=== PATIENT | male | born 1945 | race Caucasian/White ===

== ENCOUNTER 2018-04-21 15:21 | Inpatient (IN) | END 2018-04-27 18:25 | disposition home health service (06) | DRG 682 ==

== ENCOUNTER 2019-04-24 13:14 | Inpatient (IN) | payer MEDICARE, MEDICAID ==
[~2019-04-24] VITALS: Ht 167.6 cm; Wt 77.3 kg
[~2019-04-24 13:14] MED LIST: ACET1TAB40 PO; ALLO100T PO; ALPR1TAB2 PO; AMIO100T4 PO; AMIO200T4 PO; AMLO-145 PO; ASC500 PO; BALS60OI TOP; BISA5TAB6 PO; CALC-662 PO; CYAN500T21 PO; DOCU-144 PO; DULO30CA45 PO; ERGO500014 PO; FAMO20TA18 PO; FERR325C PO; FOLI-49 PO; FURO20TA3 PO; GABA100C14 PO; IRON1TAB77 PO; MAGN400T28 PO; METO-335 PO; MULT-876 PO; MV-M1TAB2 PO; NORT50CA PO; OMEG-135 PO; OXYC-279 PO; PANT40TA4 PO; SENN-120 PO; SIMV20TA2 PO; TEST1.25 TD; VITA200C45 PO; WARF2.5T PO; WARF5TAB PO; ZINC220C5 PO
[2019-04-24 13:24] VITALS: Ht 167.6 cm; Wt 77.3 kg
[2019-04-24] MEDS ORDERED: morphine 2 MG INJ IV STA ×2 (14:02→15:39)
[2019-04-24] MEDS ORDERED: ONDANSETRON 4 MG INJ IV STA (14:02)
[2019-04-24] MEDS ORDERED: PIPER-TAZO 3.375 GM IV (PMX) 100 ML IVPB STA (14:55)
[2019-04-24] MEDS ORDERED: VANCOMYCIN 1 GM (PMX) 250 ML IVPB STA (14:55)
[2019-04-24] MEDS ORDERED: SODIUM CHLORIDE 0.9% 1L BAG IV* STA (14:55)
[2019-04-24] MEDS ORDERED: DOCUSATE SODIUM 100 MG CAP PO PRN (19:00)
[2019-04-24] MEDS ORDERED: hydrALAzine 20 MG INJ IV PRN (19:00)
[2019-04-24] MEDS ORDERED: NACL 0.9% 3 ML SYG IV SCH (19:00)
[2019-04-24] MEDS ORDERED: NITROGLYCERIN (SL) 0.4 MG TAB SL PRN (19:00)
[2019-04-24] MEDS ORDERED: ACETAMINOPHEN 325 MG TAB PO PRN ×2 (19:00)
[2019-04-24] MEDS ORDERED: ALBUTEROL/IPRATROPIUM (NEB) 3 ML AMP HHN PRN (19:00)
[2019-04-24] MEDS ORDERED: VANCOMYCIN IV PER PHARMACY XX SCH (19:00)
[2019-04-24] MEDS ORDERED: ONDANSETRON 4 MG INJ IV PRN ×2 (19:00)
[2019-04-24] MEDS ORDERED: LORAZEPAM 2 MG INJ IV PRN (19:00)
[2019-04-24] MEDS ORDERED: MAGNESIUM HYDROXIDE 30ML CUP PO PRN (19:00)
[2019-04-24 22:45] VITALS: BP 183/94; PULSE 68; RESP 18
[2019-04-24] MEDS: SOD CHLORIDE 0.45% 1,000 ML IV SCH (22:50)
[2019-04-24] MEDS: morphine 2 MG INJ IV PRN (22:58)
[2019-04-25] MEDS ORDERED: PENDING SANTYL ORDER FOR WOUND CARE XX PRN (00:30)
[2019-04-25] MEDS: PIPER-TAZO 3.375 GM IV (PMX) 100 ML IVPB SCH ×4 (00:43→17:27)
[2019-04-25 02:20] VITALS: BP 140/71; PULSE 68; RESP 16
[2019-04-25] MEDS: morphine 2 MG INJ IV PRN ×5 (04:24→20:31)
[2019-04-25 08:08] VITALS: BP 114/67; PULSE 60; RESP 20
[2019-04-25] MEDS: MAGNESIUM OXIDE 400 MG TAB PO SCH (08:38)
[2019-04-25] MEDS: ZINC SULFATE 220 MG CAP PO SCH (08:38)
[2019-04-25] MEDS: FUROSEMIDE 20 MG TAB PO SCH (08:38)
[2019-04-25] MEDS: FAMOTIDINE 20 MG TAB PO SCH (08:39)
[2019-04-25] MEDS: BISACODYL (EC) 5 MG TAB PO SCH (08:39)
[2019-04-25] MEDS: CALCIUM/VITAMIN D (500/200) TAB PO SCH (08:39)
[2019-04-25] MEDS: FOLIC ACID 1 MG TAB PO SCH (08:39)
[2019-04-25] MEDS: FISH OIL 1,000 MG CAP PO SCH (08:39)
[2019-04-25] MEDS: ASCORBIC ACID 500 MG TAB PO SCH (08:40)
[2019-04-25] MEDS ORDERED: LUTEIN PO SCH (09:00)
[2019-04-25] MEDS ORDERED: IRON CARBONYL PO SCH (09:00)
[2019-04-25] MEDS ORDERED: COQ10 PO SCH (09:00)
[2019-04-25] MEDS: MULTIVITAMINS/MINERALS TAB PO SCH (09:00)
[2019-04-25] MEDS ORDERED: LYCOPENE PO SCH (09:00)
[2019-04-25] MEDS ORDERED: [UNRECOGNIZED DRUG - OTHER] PO SCH (09:00)
[2019-04-25] MEDS ORDERED: [UNRECOGNIZED DRUG - OTHER] PO SCH (09:00)
[2019-04-25] MEDS ORDERED: MV MN PO SCH (09:00)
[2019-04-25] MEDS ORDERED: MAGNESIUM SULFATE 2 GM/50 ML 50 ML IVPB ONE (09:30)
[2019-04-25] MEDS: VITAMIN E 400 UNITS CAP PO SCH (10:15)
[2019-04-25] MEDS: SOD CHLORIDE 0.45% 1,000 ML IV SCH (12:34)
[2019-04-25 14:00] VITALS: BP 132/70; PULSE 64; RESP 19
[2019-04-25] MEDS: HYDROCODONE/APAP (5/325) TAB PO PRN ×3 (15:07→22:29)
[2019-04-25] MEDS: WARFARIN 5 MG TAB PO SCH (16:28)
[2019-04-25] MEDS ORDERED: VANCOMYCIN 1.25 GM/NS 250 ML 250 ML IVPB SCH (17:00)
[2019-04-25 20:00] VITALS: BP 134/62; PULSE 57; RESP 19
[2019-04-26] MEDS: PIPER-TAZO 3.375 GM IV (PMX) 100 ML IVPB SCH ×3 (00:29→12:54)
[2019-04-26] MEDS: morphine 2 MG INJ IV PRN ×6 (00:32→21:04)
[2019-04-26 02:00] VITALS: BP 123/61; PULSE 55; RESP 19
[2019-04-26] MEDS: HYDROCODONE/APAP (5/325) TAB PO PRN ×3 (06:41→20:05)
[2019-04-26 08:00] VITALS: BP 140/61; PULSE 54; RESP 19
[2019-04-26] MEDS: FAMOTIDINE 20 MG TAB PO SCH (08:38)
[2019-04-26] MEDS: FISH OIL 1,000 MG CAP PO SCH (08:39)
[2019-04-26] MEDS: FUROSEMIDE 20 MG TAB PO SCH (08:39)
[2019-04-26] MEDS: FOLIC ACID 1 MG TAB PO SCH (08:39)
[2019-04-26] MEDS: ASCORBIC ACID 500 MG TAB PO SCH (08:39)
[2019-04-26] MEDS: MAGNESIUM OXIDE 400 MG TAB PO SCH (08:39)
[2019-04-26] MEDS: VITAMIN E 400 UNITS CAP PO SCH (08:40)
[2019-04-26] MEDS: CALCIUM/VITAMIN D (500/200) TAB PO SCH (08:40)
[2019-04-26] MEDS: ZINC SULFATE 220 MG CAP PO SCH (08:40)
[2019-04-26] MEDS: MULTIVITAMINS/MINERALS TAB PO SCH (08:40)
[2019-04-26] MEDS: BISACODYL (EC) 5 MG TAB PO SCH (08:40)
[2019-04-26 14:00] VITALS: BP 151/76; PULSE 60; RESP 18
[2019-04-26] MEDS: LEVOFLOXACIN 750MG/D5W (PMX) 150 ML IVPB SCH (16:38)
[2019-04-26 20:00] VITALS: BP 144/73; PULSE 62; RESP 17
[2019-04-26] MEDS: WARFARIN 2.5 MG TAB PO SCH (20:05)
[2019-04-27] MEDS: morphine 2 MG INJ IV PRN ×6 (01:07→21:44)
[2019-04-27 02:00] VITALS: BP 131/64; PULSE 54; RESP 18
[2019-04-27] MEDS: HYDROCODONE/APAP (5/325) TAB PO PRN ×4 (02:16→20:41)
[2019-04-27 07:28] VITALS: BP 138/70; PULSE 57; RESP 16
[2019-04-27] MEDS: MULTIVITAMINS/MINERALS TAB PO SCH (08:26)
[2019-04-27] MEDS: ASCORBIC ACID 500 MG TAB PO SCH (08:26)
[2019-04-27] MEDS: FOLIC ACID 1 MG TAB PO SCH (08:26)
[2019-04-27] MEDS: BISACODYL (EC) 5 MG TAB PO SCH (08:26)
[2019-04-27] MEDS: VITAMIN E 400 UNITS CAP PO SCH (08:26)
[2019-04-27] MEDS: MAGNESIUM OXIDE 400 MG TAB PO SCH (08:26)
[2019-04-27] MEDS: CALCIUM/VITAMIN D (500/200) TAB PO SCH (08:27)
[2019-04-27] MEDS: FUROSEMIDE 20 MG TAB PO SCH (08:27)
[2019-04-27] MEDS: FISH OIL 1,000 MG CAP PO SCH (08:27)
[2019-04-27] MEDS: ZINC SULFATE 220 MG CAP PO SCH (08:27)
[2019-04-27] MEDS: FAMOTIDINE 20 MG TAB PO SCH (08:31)
[2019-04-27] MEDS ORDERED: ZINC SULFATE 220 MG CAP PO SCH (09:00)
[2019-04-27] MEDS ORDERED: FOLIC ACID 1 MG TAB PO SCH (09:00)
[2019-04-27] MEDS ORDERED: POTASSIUM CHLORIDE (SR) 20 MEQ TAB PO STA (12:12)
[2019-04-27 14:14] VITALS: BP 123/66; PULSE 75; RESP 18
[2019-04-27] MEDS ORDERED: morphine 2 MG INJ IV PRN (15:00)
[2019-04-27] MEDS: LEVOFLOXACIN 750MG/D5W (PMX) 150 ML IVPB SCH (15:46)
[2019-04-27] MEDS: WARFARIN 5 MG TAB PO SCH (17:50)
[2019-04-27 19:37] VITALS: BP 140/70; PULSE 68; RESP 18
[2019-04-27] MEDS: ASCORBIC ACID 250 MG TAB PO SCH (20:40)
[2019-04-27] MEDS ORDERED: VANCOMYCIN IV PER PHARMACY XX SCH (21:00)
[2019-04-27] MEDS ORDERED: VANCOMYCIN 1.5 GM/NS 250 ML 250 ML IVPB SCH (23:00)
[2019-04-28 01:42] VITALS: BP 157/70; PULSE 59; RESP 20
[2019-04-28] MEDS: morphine 2 MG INJ IV PRN ×7 (01:42→23:07)
[2019-04-28] MEDS: HYDROCODONE/APAP (5/325) TAB PO PRN ×4 (02:43→21:10)
[2019-04-28 08:00] VITALS: BP 146/69; PULSE 59; RESP 18
[2019-04-28] MEDS: ZINC SULFATE 220 MG CAP PO SCH (08:36)
[2019-04-28] MEDS: FISH OIL 1,000 MG CAP PO SCH (08:36)
[2019-04-28] MEDS: FUROSEMIDE 20 MG TAB PO SCH (08:38)
[2019-04-28] MEDS: ASCORBIC ACID 250 MG TAB PO SCH ×2 (08:38→20:15)
[2019-04-28] MEDS: CALCIUM/VITAMIN D (500/200) TAB PO SCH (08:38)
[2019-04-28] MEDS: MAGNESIUM OXIDE 400 MG TAB PO SCH (08:39)
[2019-04-28] MEDS: MULTIVIT/CA CARB/B CMPLX/FA TAB PO SCH (08:39)
[2019-04-28] MEDS: FOLIC ACID 1 MG TAB PO SCH (08:39)
[2019-04-28] MEDS: VITAMIN E 400 UNITS CAP PO SCH (08:39)
[2019-04-28] MEDS: BISACODYL (EC) 5 MG TAB PO SCH (08:39)
[2019-04-28] MEDS: FAMOTIDINE 20 MG TAB PO SCH (08:46)
[2019-04-28 14:00] VITALS: BP 116/63; PULSE 66; RESP 16
[2019-04-28] MEDS: WARFARIN 2.5 MG TAB PO SCH (17:20)
[2019-04-28 20:00] VITALS: BP 133/67; PULSE 58; RESP 16
[2019-04-28] MEDS ORDERED: VANCOMYCIN 1.25 GM/NS 250 ML 250 ML IVPB SCH (22:00)
[2019-04-29 02:18] VITALS: BP 121/59; PULSE 56; RESP 18
[2019-04-29] MEDS: morphine 2 MG INJ IV PRN ×4 (03:08→15:32)
[2019-04-29] MEDS: HYDROCODONE/APAP (5/325) TAB PO PRN ×3 (04:12→16:33)
[2019-04-29 07:57] VITALS: BP 126/57; PULSE 66; RESP 20
[2019-04-29] MEDS: FOLIC ACID 1 MG TAB PO SCH (08:47)
[2019-04-29] MEDS: BISACODYL (EC) 5 MG TAB PO SCH (08:47)
[2019-04-29] MEDS: MULTIVIT/CA CARB/B CMPLX/FA TAB PO SCH (08:48)
[2019-04-29] MEDS: CALCIUM/VITAMIN D (500/200) TAB PO SCH (08:48)
[2019-04-29] MEDS: MAGNESIUM OXIDE 400 MG TAB PO SCH (08:48)
[2019-04-29] MEDS: VITAMIN E 400 UNITS CAP PO SCH (08:48)
[2019-04-29] MEDS: FISH OIL 1,000 MG CAP PO SCH (08:48)
[2019-04-29] MEDS: ZINC SULFATE 220 MG CAP PO SCH (08:49)
[2019-04-29] MEDS: ASCORBIC ACID 250 MG TAB PO SCH (08:49)
[2019-04-29] MEDS: FUROSEMIDE 20 MG TAB PO SCH (08:50)
[2019-04-29] MEDS: FAMOTIDINE 20 MG TAB PO SCH (08:50)
[2019-04-29] MEDS ORDERED: WARFARIN 2.5 MG TAB PO SCH (17:00)
== END 2019-04-29 17:15 | DRG 594 ==
LOC: E/R 13:14 → INTOOBSV 18:42 → PP2 18:42 → OBSVTOIN 04-25 12:50
PROVIDERS: ADMIT Hospitalist; ATTEND Hospitalist
DX: L89.621 Pressure ulcer of left heel, stage 1 (principal); L89.153 Pressure ulcer of sacral region, stage 3; L89.213 Pressure ulcer of right hip, stage 3; D64.9 Anemia, unspecified; Z72.89 Other problems related to lifestyle; I10 Essential (primary) hypertension; E78.5 Hyperlipidemia, unspecified; Z91.81 History of falling; Z79.02 Long term (current) use of antithrombotics/antiplatelets; M54.5 Low back pain; R53.81 Other malaise; L89.622 Pressure ulcer of left heel, stage 2; Z86.711 Personal history of pulmonary embolism; I07.1 Rheumatic tricuspid insufficiency; Z76.5 Malingerer [conscious simulation]
CPT/HCPCS: 36415; 71045; 73718; 80048; 80053; 80061; 80307; 81001; 81003; 83036; 83605; 83735; 84100; 84439; 84443; 84484; 85025; 85610; 85730; 86140; 87081; 87086; 92610; 93005; 93306; 96374; 96375; 96376; 97110; 97116; 97162; 97167; 97530; 99217; G0378; J1956; J2270; J2405; J2543; J3370; J3475; J7030